=== PATIENT | male | born 1985 | race African-American/Black ===

== ENCOUNTER 2021-10-23 01:19 | Emergency (ER) | payer BC ==
[2021-10-23 02:11] LABS: Absolute Lymphocytes (CBC) 2.2 K/uL (0.7-4.9); Hematocrit 43.7 % (39.6-49.0); Lymphocytes % 28.6 % (15.3-44.8); MPV 8.9 fL (7.6-11.3); RBC Red Blood Cell Count 5.65 M/uL (4.33-5.43)
[2021-10-23 02:16] LABS: Protime INR 0.96
[2021-10-23 02:35] LABS: ALT/SGPT 29 U/L (12-78); Albumin 3.5 g/dL (3.4-5.0); Alkaline Phosphatase 70 U/L (45-117); BUN Blood Urea Nitrogen 13 mg/dL (7-18); Bicarbonate 25 mmol/L (21-32); Bilirubin Total 0.5 mg/dL (0.2-1.0); Glucose Level 106 mg/dL (74-106); NT PRO-BNP 7 pg/mL (<125); Potassium 3.9 mmol/L (3.5-5.1); Protein, Total 7.4 g/dL (6.4-8.2); Sodium Level 138 mmol/L (136-145); Troponin High Sensitivity 5.3 pg/mL (<58.9)
[2021-10-23 02:36] LABS: AST/SGOT 17 U/L (15-37); Bilirubin Direct < 0.1 mg/dL (0-0.2); Magnesium 2.3 mg/dL (1.8-2.4)
--- NOTE | 2021-10-23 03:54 | EDPHYS ---
Physician Documentation [facility] Name: Nahid Wing Age: 36 yrs Sex: Male : 1985 Arrival Date: 10/23/2021 Time: 03:08 Bed 5 Private MD: ED Physician Chuy Frey HPI: 10/23 03:09 This 36 yrs old Black Male presents to ER via Unassigned with complaints of HTN AND doni DIZZY. 03:09 The patient presents with dizziness, generalized weakness. Onset: The symptoms/episode doni began/occurred 1 day(s) ago. Context: occurred at work. Modifying factors: The symptoms are alleviated by nothing, the symptoms are aggravated by nothing. Associated signs and symptoms: The patient has no apparent associated signs or symptoms. Severity of symptoms: At their worst the symptoms were mild in the emergency department the symptoms are unchanged. Patient's baseline: Neuro:. Historical: - Allergies: 01:30 No Known Allergies; as6 - Home Meds: 01:30 None [Active]; as6 - PMHx: 01:30 None; as6 - PSHx: 01:30 None; as6 - Immunization history:: Client reports having NOT received the Covid vaccine. - Social history:: Smoking status: Reported history of juuling and/or vaping. - Family history:: not pertinent. ROS: 03:09 Constitutional: Negative for fever, chills, and weight loss, Eyes: Negative for injury, doni pain, redness, and discharge, ENT: Negative for injury, pain, and discharge, Neck: Negative for injury, pain, and swelling, Cardiovascular: Negative for chest pain, palpitations, and edema, Respiratory: Negative for shortness of breath, cough, wheezing, and pleuritic chest pain, Abdomen/GI: Negative for abdominal pain, nausea, vomiting, diarrhea, and constipation, Back: Negative for injury and pain, : Negative for injury, bleeding, discharge, and swelling, MS/Extremity: Negative for injury and deformity, Skin: Negative for injury, rash, and discoloration, Psych: Negative for depression, anxiety, suicide ideation, homicidal ideation, and hallucinations, Allergy/Immunology: Negative for hives, rash, and allergies, Endocrine: Negative for neck swelling, polydipsia, polyuria, polyphagia, and marked weight changes, Hematologic/Lymphatic: Negative for swollen nodes, abnormal bleeding, and unusual bruising. 03:09 Neuro: Positive for dizziness. Exam: 03:09 Constitutional: This is a well developed, well nourished patient who is awake, alert, doni and in no acute distress. Head/Face: Normocephalic, atraumatic. Eyes: Pupils equal round and reactive to light, extra-ocular motions intact. Lids and lashes normal. Conjunctiva and sclera are non-icteric and not injected. Cornea within normal limits. Periorbital areas with no swelling, redness, or edema. ENT: Nares patent. No nasal discharge, no septal abnormalities noted. Tympanic membranes are normal and external auditory canals are clear. Oropharynx with no redness, swelling, or masses, exudates, or evidence of obstruction, uvula midline. Mucous membranes moist. Neck: Trachea midline, no thyromegaly or masses palpated, and no cervical lymphadenopathy. Supple, full range of motion without nuchal rigidity, or vertebral point tenderness. No Meningismus. Chest/axilla: Normal chest wall appearance and motion. Nontender with no deformity. No lesions are appreciated. Cardiovascular: Regular rate and rhythm with a normal S1 and S2. No gallops, murmurs, or rubs. Normal PMI, no JVD. No pulse deficits. Respiratory: Lungs have equal breath sounds bilaterally, clear to auscultation and percussion. No rales, rhonchi or wheezes noted. No increased work of breathing, no retractions or nasal flaring. Abdomen/GI: Soft, non-tender, with normal bowel sounds. No distension or tympany. No guarding or rebound. No evidence of tenderness throughout. Back: No spinal tenderness. No costovertebral tenderness. Full range of motion. Male : Normal genitalia with no discharge or lesions. Skin: Warm, dry with normal turgor. Normal color with no rashes, no lesions, and no evidence of cellulitis. MS/ Extremity: Pulses equal, no cyanosis. Neurovascular intact. Full, normal range of motion. Neuro: Awake and alert, GCS 15, oriented to person, place, time, and situation. Cranial nerves II-XII grossly intact. Motor strength 5/5 in all extremities. Sensory grossly intact. Cerebellar exam normal. Normal gait. Psych: Awake, alert, with orientation to person, place and time. Behavior, mood, and affect are within normal limits. Vital Signs: 01:30 BP 144 / 96; Pulse 86; Resp 18 S; Temp 98.6(TE); Pulse Ox 95% on R/A; Weight 92.08 kg as6 (R); Height 5 ft. 5 in. (165.10 cm) (R); Pain 0/10; 02:30 BP 133 / 98; Pulse 77; Resp 20 S; Pulse Ox 98% on R/A; as6 03:30 BP 146 / 100; Pulse 73; Resp 18 S; Pulse Ox 100% on R/A; as6 01:30 Body Mass Index 33.78 (92.08 kg, 165.10 cm) as6 MDM: 03:08 Patient medically screened. [facility] 03:11 Differential diagnosis: generalized weakness, idiopathic dizziness. Data reviewed: [facility] vital signs, nurses notes, lab test result(s), EKG, radiologic studies, CT scan, plain films. 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 Test interpretation: by ED physician or midlevel provider: ECG, plain radiologic studies. Counseling: I had a detailed discussion with the patient and/or guardian regarding: the historical points, exam findings, and any diagnostic results supporting the discharge/admit diagnosis, lab results, radiology results, the need for outpatient follow up, for definitive care, a plans examiner, a family practitioner. 10/23 03:47 Order name: CBC with Automated Diff EDIN 10/23 03:47 Order name: Protime (+INR) EDIN 10/23 03:47 Order name: Basic Metabolic Panel EDIN 10/23 03:47 Order name: Liver (Hepatic) Function EDIN 10/23 03:47 Order name: Troponin High Sensitivity EDIN 10/23 03:47 Order name: NT PRO-BNP EDIN 10/23 03:47 Order name: Magnesium EDIN 10/23 03:09 Order name: EKG; Complete Time: 03:49 doni 10/23 03:09 Order name: Cardiac monitoring; Complete Time: 04:16 doni 10/23 03:09 Order name: EKG - Nurse/Tech; Complete Time: 04:16 doni 10/23 03:09 Order name: IV Saline Lock; Complete Time: 04:16 doni 10/23 03:09 Order name: Labs collected and sent; Complete Time: 04:16 [facility] 10/23 03:09 Order name: O2 Per Protocol; Complete Time: 04:16 [facility] 10/23 03:09 Order name: O2 Sat Monitoring; Complete Time: 04:16 [facility] 10/23 03:47 Order name: SARS-COV-2 RT PCR EDMS 10/23 03:58 Order name: Chest Single View EDMS Administered Medications: 03:59 Drug: Norvasc (amlodipine) 5 mg Route: PO; as6 04:16 Follow up: Response: No adverse reaction as6 Disposition Summary: 10/23/21 03:35 Discharge Ordered Location: Home doni Problem: new doni Symptoms: have improved doni Condition: Stable doni Diagnosis - Essential (primary) hypertension doni - Dizziness and giddiness doni Followup: doni - With: Private Physician - When: 2 - 3 days - Reason: Recheck today's complaints, Continuance of care, Re-evaluation by your physician Followup: doni - With: - When: 2 - 3 days - Reason: Recheck today's complaints, Continuance of care, Re-evaluation by your physician Discharge Instructions: - Discharge Summary Sheet doni - Dizziness doni - Hypertension, Adult doni - Hypertension, Adult, Alcn-ll-[id number] doni - How to Take Your Blood Pressure, Fiiv-bn-[id number] doni - Aspirin and Your Heart doni - Dizziness, Adtz-bo-Koue doni - Managing Your Hypertension doni Forms: - Medication Reconciliation Form doni - Thank You Letter doni - Antibiotic Education doni - Prescription Opioid Use doni Prescriptions: - Norvasc 5 mg Oral Tablet - take 1 tablet by ORAL route once daily; 20 tablet; Refills: 0, Product doni Selection Permitted Signatures: Dispatcher [employer] Chuy Hay MD MD cha Slawson, Ashby, RN RN as6 Corrections: (The following items were deleted from the chart) 04:11 03:49 Head Brain Wo Cont+CT.RAD.BRZ ordered. EDMS EDMS 04:13 03:49 BASIC METABOLIC PANEL+C.LAB.BRZ ordered. EDMS EDMS 04:13 03:49 CBC+H.LAB.BRZ ordered. EDMS EDMS 04:13 03:49 HEPATIC FUNCTION+C.LAB.BRZ ordered. EDMS EDMS 04:13 03:49 MAGNESIUM+C.LAB.BRZ ordered. EDMS EDMS 04: 03:49 PROBNP+C.LAB.BRZ ordered. EDMS EDMS 04: 03:49 PROTIME (+INR)+COAG.LAB.BRZ ordered. EDMS EDMS 04: 03:49 Troponin High Sensitivity+C.LAB.BRZ ordered. EDMS EDMS 04:14 03:49 Chest Single View+RAD.RAD.BRZ ordered. EDMS EDMS
[2021-10-23] MEDS ORDERED: AMLODIPINE 5 MG TAB ONE (03:56)
--- NOTE | 2021-10-23 04:17 | ER ---
Nurse's Notes [facility] Name: Nahid Wing Age: 36 yrs Sex: Male : 1985 Arrival Date: 10/23/2021 Time: 03:08 Bed 5 Private MD: Diagnosis: Essential (primary) hypertension;Dizziness and giddiness Presentation: 10/23 01:30 Chief complaint: EMS states: pt was recently told he had high blood pressure (one week as6 ago) and tonight at work pt had headache, feeling lightheaded and overall not feeling right. 01:30 Coronavirus screen: At this time, the client does not indicate any symptoms associated as6 with coronavirus-19. Ebola Screen: No symptoms or risks identified at this time. Initial Sepsis Screen: Does the patient meet any 2 criteria? No. Patient's initial sepsis screen is negative. Does the patient have a suspected source of infection? No. Patient's initial sepsis screen is negative. Risk Assessment: Do you want to hurt yourself or someone else? Patient reports no desire to harm self or others. Onset of symptoms is unknown. Care prior to arrival: IV initiated. 20 GA, in the left antecubital area. 01:30 Method Of Arrival: EMS: [facility] as6 01:30 Acuity: JUDAH 3 as6 Historical: - Allergies: 01:30 No Known Allergies; as6 - Home Meds: 01:30 None [Active]; as6 - PMHx: 01:30 None; as6 - PSHx: 01:30 None; as6 - Immunization history:: Client reports having NOT received the Covid vaccine. - Social history:: Smoking status: Reported history of juuling and/or vaping. - Family history:: not pertinent. Screenin:30 Abuse screen: Denies threats or abuse. Denies injuries from another. Nutritional as6 screening: No deficits noted. Tuberculosis screening: No symptoms or risk factors identified. Fall Risk None identified. Assessment: 01:30 General: Appears in no apparent distress. Behavior is calm, cooperative. as6 01:30 Pain: Complains of pain in head Quality of pain is described as dull. Neuro: Level of as6 Consciousness is awake, alert, obeys commands, Oriented to person, place, time, situation, Reports dizziness, headache. Cardiovascular: Capillary refill < 3 seconds Patient's skin is warm and dry. Respiratory: Airway is patent Trachea midline Respiratory effort is even, unlabored, Respiratory pattern is regular, symmetrical. Vital Signs: 01:30 BP 144 / 96; Pulse 86; Resp 18 S; Temp 98.6(TE); Pulse Ox 95% on R/A; Weight 92.08 kg as6 (R); Height 5 ft. 5 in. (165.10 cm) (R); Pain 0/10; 02:30 BP 133 / 98; Pulse 77; Resp 20 S; Pulse Ox 98% on R/A; as6 03:30 BP 146 / 100; Pulse 73; Resp 18 S; Pulse Ox 100% on R/A; as6 01:30 Body Mass Index 33.78 (92.08 kg, 165.10 cm) as6 ED Course: 01:30 Arm band placed on. as6 01:30 Bed in low position. Call light in reach. Side rails up X2. Pulse ox on. NIBP on. as6 01:30 Maintain EMS IV. Dressing intact. Good blood return noted. Site clean \T\ dry. Gauge \T\ as 6 site: 20 in RAC. 03:08 Patient arrived in ED. tw5 03:08 Chuy Frey MD is Attending Physician. doni 03:14 Dick Isabel, LETICIA is Primary Nurse. as6 03:35 Robinson Mcdonough MD is Referral Physician. doni 04:01 Chest Single View In Process Unspecified. EDMS 04:10 Triage completed. as6 04:15 No provider procedures requiring assistance completed. IV discontinued, intact, as6 bleeding controlled, No redness/swelling at site. Pressure dressing applied. Administered Medications: 03:59 Drug: Norvasc (amlodipine) 5 mg Route: PO; as6 04:16 Follow up: Response: No adverse reaction as6 Outcome: 03:35 Discharge ordered by . doni 04:15 Discharged to home ambulatory. as6 04:15 Condition: stable 04:15 Discharge instructions given to patient, Instructed on discharge instructions, follow up and referral plans. medication usage, Demonstrated understanding of instructions, follow-up care, medications, Prescriptions given X 1. 04:16 Patient left the ED. as6 Signatures: Dispatcher [employer] EDVT Chuy Frey MD MD cha Wood, Tiffany tw5 Dick Isabel, RN RN as6
[2021-10-23 06:18] VITALS: TEMP 98.6
[2021-10-23 06:20] VITALS: BP 146/100; O2SAT 100
--- NOTE | 2021-10-23 11:56 | RAD REPORT ---
EXAM DESCRIPTION: RAD - Chest Single View - 10/23/2021 2:33 am CLINICAL HISTORY: 36 years, Male, CHEST PAIN COMPARISON: None. FINDINGS: Single view of the chest was obtained portable. No prior films are available for compariso n. The cardiomediastinal silhouette demonstrate to be unremarkable. The heart is not enlarged. The thoracic aorta is unremarkable. Costophrenic angles are sharp. No areas of consolidation or masses are seen. The rest of the soft tissue and bony structures demonstrate to be unremarkable. IMPRESSION: NO ACUTE CARDIOPULMONARY DISEASE SEEN. Electronically signed by: Jose A Cardenas MD 10/23/2021 2:54 AM CDT Due to temporary technical issues with the PACS/Fluency reporting system, reports are being signed by the in house radiologist without review as a courtesy to ensure prompt reporting. The interpreting r adiologist is fully responsible for the content of the report.
--- NOTE | 2021-10-26 11:22 | EKG ---
Test Date: 2021-10-23 Test Time: 01:57:32 Cinder Block Maker: MEASUREMENT RESULTS: Intervals: Rate: 75 UT: 158 QRSD: 86 QT: 370 QTc: 413 Mcconnell: P: 50 UT: 158 QRS: 17 T: 17 INTERPRETIVE STATEMENTS: Normal sinus rhythm Nonspecific T wave abnormality Abnormal ECG No previous ECG available for comparison Electronically Signed On 10-26-21 11:13:48 CDT by Robinson Mcdonough
== END 2021-10-23 04:16 | disposition home or self-care (01) ==
LOC: ER 01:19
DX: I10 Essential (primary) hypertension (principal); Z20.822 Contact with and (suspected) exposure to COVID-19
CPT/HCPCS: 93005; 85025; 80048; 36415; 83735; 85610; 80076; 84484; 83880; 71045; 99284; U0003